=== PATIENT | male | born 1985 | race Two or more races ===

== ENCOUNTER 2020-02-27 14:15 | Emergency (ER) | payer SELFPAY ==
[~2020-02-27] VITALS: Ht 167.6 cm; Wt 82.7 kg
--- NOTE | 2020-02-27 14:55 | NUR ---
ERMD AT BEDSIDE.
--- NOTE | 2020-02-27 15:23 | NUR ---
PT LYING ON GURNEY. VISITOR AT SIDE. NO NEEDS AT THIS TIME. PT UP FOR RECHECK BY TERESA.
[2020-02-27 16:00] VITALS: BP 110/59
--- NOTE | 2020-02-27 16:00 | NUR ---
PT BEING DISCHARGED HOME IN A STABLE CONDITION. DC INSTRUCTIONS DISCUSSED WITH PT. PT VERBALIZED UNDERSTANDING. NO FURTHER QUESTIONS OR CONCERNS EXPRESSED AT THAT TIME. PT TO AMBULATE WITH RN TO DC DESK.
== END 2020-02-27 16:02 | disposition home or self-care (01) ==
LOC: ED 15:50
DX: R22.33 Localized swelling, mass and lump, upper limb, bilateral (principal); F17.200 Nicotine dependence, unspecified, uncomplicated
CPT/HCPCS: 99283